=== PATIENT | female | born 1970 | race American Indian/Alaskan Native ===

== ENCOUNTER 2019-11-17 11:16 | Emergency (ER) | payer SELFPAY ==
--- NOTE | 2019-11-17 11:36 | Emergency Department Report ---
Chief Complaint: High BP Stated Complaint: HBP Time Seen by Provider: 11/17/19 11:31 - HPI History of Present Illness: 49 yo female presents with elevated blood pressure readings 151/102. Referred to ER from Urgent care after being treated from acute bronchitis. MSe pe rformed. MSE screening note: Focused history and physical exam performed. Due to findings the following was ordered: ED Disposition for MSE Clinical Impression: Encounter for medical screening examination Disposition: MED SCREENING EXAM-LEFT Condition: Stable Referrals: ERIC DUNHAM MD [Staff Physician] - 3-5 Days [facility] [Outside] - 3-5 Days
[2019-11-17 11:38] VITALS: BP 151/102
== END 2019-11-17 11:38 | disposition left against medical advice (07) ==
LOC: ED 11:16
DX: I10 Essential (primary) hypertension (principal); Z53.21 Procedure and treatment not carried out due to patient leaving prior to being seen by health care provider
CPT/HCPCS: 99281

== ENCOUNTER 2021-06-21 19:36 | Emergency (ER) | payer SELFPAY ==
[2021-06-21 19:47] VITALS: BP 137/98
[2021-06-21] MEDS ORDERED: oxyCODONE /ACETAMINOPHEN 5-325MG TAB PO ONE (20:29)
--- NOTE | 2021-06-21 21:15 | XRay Report ---
XR hip 2-3V LT INDICATION / CLINICAL INFORMATION: hip pain COMPARISON: None available. FINDINGS/IMPRESSION: No acute fracture or malalignment. No significant arthritis. Soft tissues are unremarkable. Signer Name: Leland Oviedo MD Signed: 06/21/2021 9:10 PM Workstation Name: [id number]
--- NOTE | 2021-06-21 21:15 | XRay Report ---
XR spine lumbosacral 2-3V INDICATION / CLINICAL INFORMATION: Radiating back pain. COMPARISON: None available. FINDINGS: BONES/JOINT(S): No acute fracture. No significant malalignment. Disc spaces are largely preserved. Ti ny marginal osteophytes are present L3-S1. There is also mild to moderate lower lumbar facet arthropa thy. SI joints are intact. PARASPINAL SOFT TISSUES:No significant abnormality. ADDITIONAL FINDINGS: None. IMPRESSION: Mild lower lumbar spondylosis. No evidence of acute process. Signer Name: Leland Oviedo MD Signed: 06/21/2021 9:11 PM Workstation Name: [id number]
--- NOTE | 2021-06-21 23:16 | Emergency Department Report ---
ED General Adult HPI - General Chief complaint: Extremity Injury, Lower Stated complaint: HIP/LEG PAIN Time Seen by Provider: 06/21/21 20:27 Source: patient Mode of arrival: Ambulatory Limitations: No Limitations - History of Present Illness Initial comments: 51-year-old -[place] female with my department complaining of pain to the left hip radiates down her leg and is sharp and burning fashion worse with palpation ambulation of an unknown etiology she reports no known traumatic events leading to the symptoms. She reports no dysuria no hematuria no fevers, chills, sweats -: Gradual Location: back Radiation: non-radiation Severity scale (0 -10): 5 Quality: aching, sharp Consistency: constant Improves with: none Worsens with: none Associated Symptoms: denies other symptoms Treatments Prior to Arrival: none - Related Data Previous Rx's Medication Instructions Recorded Last Taken Type Ketorolac [Toradol] 10 mg PO Q6H PRN #20 tablet 06/21/21 Unknown Rx Allergies Allergy/AdvReac Type Severity Reaction Status Date / Time No Known Allergies Allergy Verified 11/17/19 11:17 ED Review of Systems ROS: Stated complaint: HIP/LEG PAIN Other details as noted in HPI Comment: All other systems reviewed and negative ED Past Medical Hx - Past Medical History Previous Medical History?: No Hx Hypertension: No - Surgical History Past Surgical History?: No Additional Surgical History: HERNIA - Social History Smoking Status: Current Every Day Smoker - Medications Home Medications: Home Medications Medication Instructions Recorded Confirmed Last Taken Type Ketorolac [Toradol] 10 mg PO Q6H PRN #20 tablet 06/21/21 Unknown Rx ED Physical Exam - General Limitations: No Limitations General appearance: alert, in no apparent distress - Head Head exam: Present: atraumatic, normocephalic - Eye Eye exam: Present: normal appearance, PERRL, EOMI Pupils: Present: normal accommodation - ENT ENT exam: Present: normal exam, normal orophraynx, mucous membranes moist, TM's normal bilaterally - Neck Neck exam: Present: normal inspection, full ROM - Respiratory Respiratory exam: Present: normal lung sounds bilaterally, chest wall tenderness. Absent: respiratory distress - Cardiovascular Cardiovascular Exam: Present: regular rate, normal rhythm. Absent: systolic murmur, diastolic murmur, rubs, gallop - GI/Abdominal GI/Abdominal exam: Present: soft, normal bowel sounds - Extremities Exam Extremities exam: Present: normal inspection - Back Exam Back exam: Present: normal inspection, tenderness (Tenderness to the left sacroiliac joint with palpation with pain that radiates down the sciatic region. Straight leg raise is negative for) - Neurological Exam Neurological exam: Present: alert, oriented X3, CN II-XII intact - Psychiatric Psychiatric exam: Present: normal affect, normal mood - Skin Skin exam: Present: warm, dry, intact, normal color. Absent: rash, diaphoretic, erythema, urticaria, pallor, abrasion, ecchymosis ED Course Vital Signs 06/21/21 19:46 Temperature 98.9 F Pulse Rate 85 Respiratory 18 Rate Blood Pressure 137/98 O2 Sat by Pulse 99 Oximetry ED Medical Decision Making - Radiology Data Radiology results: report reviewed [address] [address] XRay Report Signed Patient: CLAUDETTE HENDERSON MR#: [id number] : 1970 Acct:[id number] Age/Sex: 51 / F ADM Date: 06/21/21 Loc: ED Attending Dr: Ordering Physician: JCARLOS WILSON Date of Service: 06/21/21 Procedure(s): XR spine lumbosacral 2-3V Accession Number(s): [id number] cc: JCARLOS WILSON Fluoro Time In Minutes: XR spine lumbosacral 2-3V INDICATION / CLINICAL INFORMATION: Radiating back pain. COMPARISON: None available. FINDINGS: BONES/JOINT(S): No acute fracture. No significant malalignment. Disc spaces are largely preserved. Tiny marginal osteophytes are present L3-S1. There is also mild to moderate lower lumbar facet arthropathy. SI joints are intact. PARASPINAL SOFT TISSUES:No significant abnormality. ADDITIONAL FINDINGS: None. IMPRESSION: Mild lower lumbar spondylosis. No evidence of acute process. Signer Name: Margaret Oviedo MD Signed: 06/21/2021 9:11 PM Workstation Name: [id number] Transcribed By: CARLO Dictated By: MARGARET OVIEDO MD Electronically Authenticated By: MARGARET OVIEDO MD Signed Date/Time: 06/21/212110 DD/ 09 TD/TT: Print Cancel - Medical Decision Making Pt presents the emergency department complaining of back pain most consistent with sacroiliac back Pain Most Consistent with Strain/Contusion. Differential Diagnosis Includes Lumbar Go Versus Musculoskeletal Spasm, Strain Versus Sciatica. No Back Pain Red Flags on History or Physical. Presentation Not Consistent with Malignancy, Fracture, Cauda Equina, Abdominal Aortic Aneurysm, Viscus Perforation, Pulmonary Embolism, Renal Colic, Pyelonephritis. Patient reports no B symptoms, trauma trauma, incontinence, saddle anesthesia, distal weakness, urinary symptoms and is a febrile. Critical care attestation.: If time is entered above; I have spent that time in minutes in the direct care of this critically ill patient, excluding procedure time. ED Disposition Clinical Impression: Lumbago with sciatica, left side Disposition: 01 HOME / SELF CARE / HOMELESS Is pt being admited?: No Does the pt Need Aspirin: No Condition: Stable Instructions: Radicular Pain, Sciatica Prescriptions: Ketorolac [Toradol] 10 mg PO Q6H PRN #20 tablet PRN Reason: Pain Referrals: KASSANDRA MULLINS MD [Staff Physician] - 3-5 Days
== END 2021-06-22 00:11 | disposition home or self-care (01) ==
LOC: ED 19:36
DX: M54.42 Lumbago with sciatica, left side (principal)
CPT/HCPCS: 72100; 99283